=== PATIENT | male | born 1950 | race African-American/Black ===

== ENCOUNTER 2017-01-08 16:35 | Emergency (ER) | payer OTHER ==
[~2017-01-08] VITALS: Ht 152.4 cm; Wt 74.8 kg
[2017-01-08 16:56] LABS: PLATELET COUNT 143 K/uL (142-355)
[2017-01-08 17:02] LABS: SODIUM 131 mmol/L (136-145)
[2017-01-09 09:17] VITALS: BP 149/67; TEMP 97.8
== END 2017-01-09 09:17 | disposition home or self-care (01) ==
LOC: ED 16:35
DX: F10.10 Alcohol abuse, uncomplicated (principal); B96.81 Helicobacter pylori [H. pylori] as the cause of diseases classified elsewhere; K29.70 Gastritis, unspecified, without bleeding; K85.90 Acute pancreatitis without necrosis or infection, unspecified
CPT/HCPCS: 36415; 80053; 80307; 80320; 81000; 82150; 83690; 85027; 86318; 96361; 96374; 99284; G0479; J3490